=== PATIENT | female | born 1985 | race Caucasian/White ===

== ENCOUNTER 2017-03-31 20:37 | Observation (INO) | payer OTHER ==
[~2017-03-31] VITALS: Ht 160 cm; Wt 68.0 kg
[~2017-03-31 20:37] MED LIST: PERC5TAB12 PO
[2017-03-31 20:39] VITALS: BP 140/88; PULSE 79; RESP 16; TEMP 98.2; O2SAT 99
[2017-03-31] MEDS ORDERED: VENL75TA PO (21:26)
[2017-03-31] MEDS ORDERED: BUPR100T4 PO (21:26)
[2017-03-31] MEDS ORDERED: CLON1TAB PO (21:26)
[2017-03-31] MEDS ORDERED: TRAZ100T6 PO (21:26)
--- NOTE | 2017-03-31 21:26 | PD ---
HPI Chief Complaint: Chest Pain Time Seen by Provider: 21:23 Travel History International Travel<30 days: No Contact w/Intl Traveler<30days: No Traveled to known affect area: No History of Present Illness HPI 31-year-old female with history of hypertension, anxiety attacks, presents to the ER today because of a substernal chest discomfort that started at work today with radiation to the back and down the left arm, shortness of breath, currently measuring at an 8 out of 10. She denies any fevers, coughing, vomiting, nausea, or any other symptoms. She does not know any exacerbating or alleviating factors. Modifying Factors: None Associated Signs & Symptoms: Substernal chest pains Risk Factors: Hypertension, anxiety attack PFSH Past Medical History Anxiety: Yes Immunizations Current: Yes Tetanus Vaccination: < 5 Years ?: Not LMP: irregular : 2 Para: 1 Miscarriage: 1 Past Surgical History Gynecologic Surgery: Yes (IUD PERF UTERUS) Social History Alcohol Use: No Tobacco Use: Yes Substance Use: No Allergies-Medications (Allergen,Severity, Reaction): Coded Allergies: No Known Allergies (Unverified , 03/31/17) Reported Meds & Prescriptions Reported Meds & Active Scripts Active Reported Gabapentin 600 Mg Tab 600 Mg PO BID Effexor (Venlafaxine HCl) 75 Mg Tab 75 Mg PO DAILY Trazodone (Trazodone HCl) 100 Mg Tablet 100 Mg PO HS Clonazepam 1 Mg Tab 1 Mg PO BID Bupropion HCl 100 Mg Tab 100 Mg PO TID Review of Systems Except as stated in HPI: all other systems reviewed are Neg Physical Exam Narrative GENERAL: Well-developed anxious appearing young white female patient currently in mild distress. Awake and oriented 3. SKIN: Focused skin assessment warm/dry. HEAD: Atraumatic. Normocephalic. EYES: Pupils equal and round. No scleral icterus. No injection or drainage. ENT: No nasal bleeding or discharge. Mucous membranes pink and moist. NECK: Trachea midline. No JVD. CARDIOVASCULAR: Regular rate and rhythm. No murmur appreciated. Pulses are present and equal bilaterally. RESPIRATORY: No accessory muscle use. Clear to auscultation. Breath sounds equal bilaterally. GASTROINTESTINAL: Abdomen soft, non-tender, nondistended. Hepatic and splenic margins not palpable. MUSCULOSKELETAL: No obvious deformities. No clubbing. No cyanosis. No edema. NEUROLOGICAL: Awake and alert. No obvious cranial nerve deficits. Motor grossly within normal limits. Normal speech. PSYCHIATRIC: Appropriate mood and affect; insight and judgment normal. Data Data Last Documented VS Vital Signs Date Time Temp Pulse Resp B/P Pulse Ox O2 Delivery O2 Flow Rate FiO2 03/31/17 22:49 99 03/31/17 22:21 69 16 142/88 Room Air 03/31/17 20:39 98.2 Orders Electrocardiogram (03/31/17:23) Ckmb (Isoenzyme) Profile (03/31/17:23) Complete Blood Count With Diff (03/31/17:23) Comprehensive Metabolic Panel (03/31/17:) Magnesium (Mg) (03/31/17:23) Prothrombin Time / Inr (Pt) (03/31/17:) Act Partial Throm Time (Ptt) (03/31/17:) Troponin I (03/31/17:23) Chest, Single Ap (03/31/17:23) Ecg Monitoring (03/31/17:23) Bilateral Bp Monitoring (03/31/17 21:23) Iv Access Insert/Monitor (03/31/17:23) Oximetry (03/31/17:23) Oxygen Administration (03/31/17:23) Sodium Chloride 0.9% Flush (Ns Flush) (03/31/17 21:30) Sodium Chlorid 0.9% 500 Ml Inj (Ns 500 M (03/31/17 21:30) Ed Urine Pregnancytest Poc (03/31/17 21:23) CKMB (03/31/17 21:30) CKMB% (03/31/17 21:30) Aspirin (Aspirin) (03/31/17 22:45) Nitroglycerin 2% Oint (Nitroglycerin 2% (03/31/17 22:45) Activity Bed Rest With Brp (03/31/17 22:47) Vital Signs (Adult) Q4H (03/31/17 22:47) Cardiac Rhythm .As Directed (03/31/17 22:47) Notify Dr: Other .PRN (03/31/17 22:47) Notify Parameters (03/31/17 22:47) Resp Oxygen Nasal Cannula (03/31/17 ) Diet Heart Healthy (04/01/17 Breakfast) Ckmb (Isoenzyme) Profile (03/31/17 22:47) Ckmb (Isoenzyme) Profile (04/01/17 01:47) Troponin I (03/31/17 22:47) Troponin I (04/01/17 01:47) Electrocardiogram (03/31/17 22:47) Electrocardiogram (04/01/17 01:47) ^ Obtain (03/31/17 22:47) 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 Operator / Telemetry [id number] (03/31/17 22:47) Admit Order (Ed Use Only) (03/31/17 22:47) Labs Laboratory Tests Test 03/31/17 21:30 White Blood Count 6.6 TH/MM3 Red Blood Count 4.30 MIL/MM3 Hemoglobin 13.0 GM/DL Hematocrit 38.8 % Mean Corpuscular Volume 90.2 FL Mean Corpuscular Hemoglobin 30.2 PG Mean Corpuscular Hemoglobin 33.5 % Concent Red Cell Distribution Width 13.3 % Platelet Count 250 TH/MM3 Mean Platelet Volume 8.0 FL Neutrophils (%) (Auto) 41.5 % Lymphocytes (%) (Auto) 43.6 % Monocytes (%) (Auto) 9.5 % Eosinophils (%) (Auto) 4.4 % Basophils (%) (Auto) 1.0 % Neutrophils # (Auto) 2.7 TH/MM3 Lymphocytes # (Auto) 2.9 TH/MM3 Monocytes # (Auto) 0.6 TH/MM3 Eosinophils # (Auto) 0.3 TH/MM3 Basophils # (Auto) 0.1 TH/MM3 CBC Comment DIFF FINAL Differential Comment Prothrombin Time 10.3 SEC Prothromb Time International 0.9 RATIO Ratio Activated Partial 29.7 SEC Thromboplast Time Sodium Level 137 MEQ/L Potassium Level 3.7 MEQ/L Chloride Level 104 MEQ/L Carbon Dioxide Level 25.9 MEQ/L Anion Gap 7 MEQ/L Blood Urea Nitrogen 7 MG/DL Creatinine 0.84 MG/DL Estimat Glomerular Filtration 79 ML/MIN Rate Random Glucose 72 MG/DL Calcium Level 8.3 MG/DL Magnesium Level 2.1 MG/DL Total Bilirubin 0.3 MG/DL Aspartate Amino Transf 12 U/L (AST/SGOT) Alanine Aminotransferase 17 U/L (ALT/SGPT) Alkaline Phosphatase 51 U/L Total Creatine Kinase 121 U/L Creatine Kinase MB 1.0 NG/ML Troponin I LESS THAN 0.02 NG/ML Total Protein 7.1 GM/DL Albumin 3.9 GM/DL MDM Medical Decision Making Medical Screen Exam Complete: Yes Emergency Medical Condition: Yes Medical Record Reviewed: Yes Interpretation(s) EKG shows NSR, no ST elevation or depression, and no arrhythmias. No significant T-wave inversions. CHEST X-RAY: No infiltrate, pneumothorax or mediastinal widening. Laboratory Tests Test 03/31/17 21:30 Monocytes (%) (Auto) 9.5 % (0.0-8.0) Eosinophils (%) (Auto) 4.4 % (0.0-4.0) Estimat Glomerular Filtration 79 ML/MIN (>89) Rate Random Glucose 72 MG/DL (74-106) Calcium Level 8.3 MG/DL (8.5-10.1) Aspartate Amino Transf 12 U/L (15-37) (AST/SGOT) Troponin I LESS THAN 0.02 NG/ML (0.02-0.05) Differential Diagnosis Anxiety attack versus ACS versus dysrhythmias Narrative Course Vital signs are stable in the ER. Patient was given aspirin and nitroglycerin in the ER. EKG and chest x-ray as well as cardiac enzymes are unremarkable. At this point, do not seem signs of dysrhythmias. Planning to admit the patient for further evaluation a chest pain. Diagnosis Primary Impression: Chest pain Admitting Information Admitting Physician Requests: Admit Rocky Joseph MD Mar 31, 2017 21:26
[2017-03-31] MEDS ORDERED: GABA600T PO (21:27)
[2017-03-31] MEDS ORDERED: SODIUM CHLORIDE 0.9% FLUSH 10 ML FLUSH IVF PRN (21:30)
[2017-03-31] MEDS ORDERED: SODIUM CHLORID 0.9% 500 ML INJ 500 ML IV ONE (21:30)
[2017-03-31 21:33] VITALS: BP 115/75; PULSE 70; RESP 16; O2SAT 99
[2017-03-31 21:45] LABS: AUTOMATED NEUTROPHIL # 2.7 TH/MM3 (1.8-7.7); BASOPHIL # 0.1 TH/MM3 (0-0.2); EOSINOPHIL # 0.3 TH/MM3 (0-0.4); EOSINOPHIL % 4.4 % (0.0-4.0); HEMATOCRIT 38.8 % (35.0-46.0); HEMO FLAGS DIFF FINAL; LYMPH % 43.6 % (9.0-44.0); LYMPHOCYTE # 2.9 TH/MM3 (1.0-4.8); MEAN CELL VOLUME 90.2 FL (80.0-100.0); MEAN CORPUSCULAR HEMOGLOBIN 30.2 PG (27.0-34.0); MEAN CORPUSCULAR HGB CONC 33.5 % (32.0-36.0); MONO % 9.5 % (0.0-8.0); NEUT % 41.5 % (16.0-70.0); PLATELET COUNT 250 TH/MM3 (150-450); RED CELL DISTRIBUTION WIDTH 13.3 % (11.6-17.2); WHITE BLOOD COUNT 6.6 TH/MM3 (4.0-11.0)
[2017-03-31 21:58] LABS: APTT (PATIENT) 29.7 SEC (24.3-30.1); INTERNATIONAL NORMALIZED RATIO 0.9 RATIO; PROTHROMBIN TIME - PATIENT 10.3 SEC (9.8-11.6)
[2017-03-31 22:03] LABS: ANION GAP 7 MEQ/L (5-15); AST (GOT) 12 U/L (15-37); BICARBONATE 25.9 MEQ/L (21.0-32.0); BLOOD UREA NITROGEN 7 MG/DL (7-18); CHLORIDE 104 MEQ/L (98-107); GLOMERULAR FILTRATION RATE 79 ML/MIN (>89); MAGNESIUM 2.1 MG/DL (1.5-2.5); POTASSIUM 3.7 MEQ/L (3.5-5.1); SODIUM (NA) 137 MEQ/L (136-145)
[2017-03-31 22:04] LABS: ALT (GPT) 17 U/L (10-53)
[2017-03-31 22:07] LABS: ALKALINE PHOSPHATASE 51 U/L (45-117); CREATINE KINASE 121 U/L (26-192); TOTAL BILIRUBIN ADULT 0.3 MG/DL (0.2-1.0)
[2017-03-31 22:21] VITALS: BP 142/88; PULSE 69; RESP 16; O2SAT 99
--- NOTE | 2017-03-31 22:44 | RADRPT ---
EXAM DATE/TIME: 03/31/2017 21:35 [facility] COMPARISON: No previous studies available for comparison. INDICATIONS : Chest pain today. MEDICAL HISTORY : None. SURGICAL HISTORY : None. ENCOUNTER: Initial ACUITY: 1 day PAIN SCORE: 7/10 LOCATION: Bilateral chest FINDINGS: A single view of the chest demonstrates the lungs to be symmetrically aerated without evidence of mas s, infiltrate or effusion. The cardiomediastinal contours are unremarkable. Osseous structures are intact. CONCLUSION: No acute disease. Hai Ziegler MD on March 31, 2017 at 22:42 Board Certified Radiologist. This report was verified electronically.
[2017-03-31] MEDS ORDERED: NITROGLYCERIN 2% OINT 1 GM PACKET TOPICAL ONE (22:45)
[2017-03-31] MEDS ORDERED: ASPIRIN 325 MG TAB PO ONE (22:45)
[2017-03-31 22:49] VITALS: O2SAT 99
[2017-03-31] MEDS ORDERED: LORazepam 2 MG/ML VIAL IV PUSH ONE (23:30)
[2017-04-01 00:30] VITALS: BP 101/67; PULSE 70; RESP 19; TEMP 98; O2SAT 99
[2017-04-01 01:53] LABS: CREATINE KINASE 102 U/L (26-192)
[2017-04-01] MEDS ORDERED: ACETAMINOPHEN/HYDROcodone 325 MG/5 MG TAB PO ONE (02:00)
[2017-04-01 02:07] LABS: CKMB 0.8 NG/ML (0.5-3.6)
[2017-04-01 02:30] VITALS: PULSE 65
[2017-04-01 04:00] VITALS: BP 90/54; PULSE 78; RESP 18; TEMP 97.3; O2SAT 95
[2017-04-01 04:10] LABS: CREATINE KINASE 93 U/L (26-192)
[2017-04-01 08:00] VITALS: TEMP 97.1
[2017-04-01 08:03] VITALS: O2SAT 96
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
[2017-04-01] MEDS ORDERED: GABAPENTIN 300 MG CAP PO SCH (11:30)
[2017-04-01] MEDS ORDERED: VENLAFAXINE HCL XR 75 MG CAP PO SCH (11:30)
[2017-04-01 11:59] LABS: BETA HCG QUANT LESS THAN 1 MIU/ML (0-5)
[2017-04-01] MEDS ORDERED: buPROPion HCL 100 MG TAB PO SCH (13:00)
[2017-04-01] MEDS ORDERED: clonazePAM 1 MG TAB PO PRN (13:30)
--- NOTE | 2017-04-01 13:54 | EKG ---
Date Performed: 04/01/2017 Time Performed: 03:33:28 PTAGE: 31 years EKG: Sinus rhythm NORMAL ECG PREVIOUS TRACING : 04/01/2017 00.44 Since previous tracing, no significant change noted DOCTOR: Sandor Stratton Interpretating Date/Time 04/01/2017 13:54:01
--- NOTE | 2017-04-01 13:55 | EKG ---
Date Performed: 04/01/2017 Time Performed: 00:44:15 PTAGE: 31 years EKG: Sinus rhythm NORMAL ECG NO PREVIOUS TRACING DOCTOR: Sandor Stratton Interpretating Date/Time 04/01/2017 13:54:29
--- NOTE | 2017-04-01 13:55 | EKG ---
Date Performed: 03/31/2017 Time Performed: 21:25:11 PTAGE: 31 years EKG: Sinus rhythm POSSIBLE LEFT ATRIAL ENLARGEMENT POSSIBLE RIGHT VENTRICULAR CONDUCTION DELAY BORDERLINE ECG NO PREVIOUS TRACING DOCTOR: Sandor Stratton Interpretating Date/Time 04/01/2017 13:54:37
[2017-04-01] MEDS ORDERED: IOHEXOL 350 MG/ML 10 ML VIAL (for RAD DIAG) IV ONE (14:00)
--- NOTE | 2017-04-01 14:08 | RADRPT ---
EXAM DATE/TIME: 04/01/2017 13:47 [facility] COMPARISON: No previous studies available for comparison. INDICATIONS : Chest pain, shooting pains to left arm and leg, nausea and shortness of breath. IV CONTRAST: 66 cc Omnipaque 350 (iohexol) IV RADIATION DOSE: 23.27 CTDIvol (mGy) MEDICAL HISTORY : Cardiovascular disease. Hypertension. SURGICAL HISTORY : ovarian cyst ENCOUNTER: Initial ACUITY: 1 day PAIN SCALE: 8/10 LOCATION: Left upper chest TECHNIQUE: Volumetric scanning of the chest was performed using a pulmonary embolism protocol MIP images were reconstructed. Using automated exposure control and adjustment of the mA and/or kV acco rding to patient size, radiation dose was kept as low as reasonably achievable to obtain optimal diag nostic quality images. FINDINGS: PULMONARY ARTERIES:No filling defects are seen in the pulmonary arteries through the segmental level. LUNGS: There is no consolidation or pneumothorax . No concerning pulmonary nodule is visualized. PLEURAE: There is no pleural thickening or pleural effusion. MEDIASTINUM: There is good visualization of the great vessels of the middle mediastinum. No evid ence of mediastinal or hilar adenopathy/mass. MUSCULOSKELETAL: Within normal limits for patient age. MISCELLANEOUS: The visualized upper abdominal organs demonstrate no acute abnormality. CONCLUSION: Negative CT pulmonary angiogram. Elton Reardon MD FACR on April 01, 2017 at 14:04 Board Certified Radiologist. This report was verified electronically.
[2017-04-01] MEDS ORDERED: PERC5TAB12 (14:46)
[2017-04-01 14:53] VITALS: BP 118/71; PULSE 61; RESP 18; TEMP 97.6; O2SAT 97
[2017-04-01] MEDS ORDERED: oxyCODONE/ACETAMINOPHEN 5 MG/325 MG TAB PO PRN (15:30)
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
--- NOTE | 2017-04-01 16:02 | TR ---
Date Performed: 04/01/2017 Time Performed: 15:22:45 DOCTOR: Sandor Stratton DRUG LIST: CLINICAL HISTORY: REASON FOR TEST: REASON FOR ENDING: OBSERVATION: CONCLUSION: Simon protocol completed. Stopped sec to reaching target heart rate and leg fatigue. Maximum UK=696 Target HR Achieved=87.0% Maximum EQ=267/98 Total Exercise Time=6:48. No reprod chest pain. No ectopy. No st t segment changes to sugg ischemia. Good exercise tolerance. Normal bp respons e. Recovery quick and unremarkable. COMMENTS: Patient exercised using the Simon protocol. No electrocardiographic changes were seen to suggest ischemia. Hemodynamic response to exercise was normal. No significant arrhythmia was prese nt.
== END 2017-04-01 18:43 | disposition home or self-care (01) ==
LOC: NEPC 20:37 → NEDA 22:48 → NEPHCDU 04-01 00:26
PROVIDERS: ADMIT Internal Medicine Interventional Cardiology; ATTEND Internal Medicine Interventional Cardiology
DX: R07.89 Other chest pain (principal); R06.02 Shortness of breath; I10 Essential (primary) hypertension; F41.1 Generalized anxiety disorder; F43.9 Reaction to severe stress, unspecified; F17.210 Nicotine dependence, cigarettes, uncomplicated
CPT/HCPCS: 71010; 71275; 80053; 82550; 82552; 83735; 84484; 84702; 84703; 85025; 85379; 85610; 85730; 93005; 93017; 96360; 99285; G0378; J2060; J7040; Q9967

== ENCOUNTER 2017-04-03 19:08 | Emergency (ER) | payer OTHER ==
[~2017-04-03] VITALS: Ht 160 cm; Wt 68.0 kg
[~2017-04-03 19:08] MED LIST changes: +BUPR100T4 PO; +CLON1TAB PO; +GABA600T PO; +PERC5TAB12; -PERC5TAB12 PO; +TRAZ100T6 PO; +VENL75TA PO
[2017-04-03 19:12] VITALS: BP 137/91; PULSE 110; RESP 16; TEMP 98.7; O2SAT 98
[2017-04-03] MEDS ORDERED: TRIA.1%T TOPICAL (20:07)
--- NOTE | 2017-04-03 20:14 | PD ---
HPI Chief Complaint: Skin Problem Time Seen by Provider: 20:09 Travel History International Travel<30 days: No Contact w/Intl Traveler<30days: No Traveled to known affect area: No History of Present Illness HPI 31-year-old white female presents emergency department with complains of tender red lumps in the back of her left calf for the last 2 days. She states that she thinks she may been bitten by something. She states that the area is painful, red, swollen, pruritic. She also needs a work note to stay out for Thursday. She states that she feels that she'll be over return to work full duty at that time. Patient has subjective fever, chills, headache. Positive general malaise. PFSH Past Medical History Bipolar Disorder: Yes Anxiety: Yes Depression: Yes Heart Rhythm Problems: No Cardiac Catheterization: No Cardiovascular Problems: Yes (pt feels heart just stop and she gets dizzy/ syncope) High Cholesterol: No Congestive Heart Failure: No Diabetes: No Heparin Induced Thrombocytopen: No Hypertension: Yes Medical other: Yes (PTSD, DVT) Immunizations Current: Yes Tetanus Vaccination: < 5 Years ?: Not : 2 Para: 1 Miscarriage: 1 Past Surgical History Coronary Artery Bypass Graft: No Gynecologic Surgery: Yes (IUD PERF UTERUS) Family History Family Myocardial Infarction: No Social History Alcohol Use: No Tobacco Use: Yes (1 ppd) Substance Use: No Allergies-Medications (Allergen,Severity, Reaction): Coded Allergies: No Known Allergies (Unverified , 04/03/17) Reported Meds & Prescriptions Reported Meds & Active Scripts Active Triamcinolone Topical (Triamcinolone Acetonide) 0.1% Cream 1 Applic TOPICAL BID Reported Percocet (Oxycodone-Acetaminophen) 5-325 mg Tab 1 .ROUTE PRN Gabapentin 600 Mg Tab 600 Mg PO BID Effexor (Venlafaxine HCl) 75 Mg Tab 75 Mg PO DAILY Trazodone (Trazodone HCl) 100 Mg Tablet 100 Mg PO HS Clonazepam 1 Mg Tab 1 Mg PO BID Bupropion HCl 100 Mg Tab 100 Mg PO TID Review of Systems Except as stated in HPI: all other systems reviewed are Neg Physical Exam Narrative GENERAL: This is a well-nourished, well-developed patient, in no apparent distress. SKIN: Patient has 2-1.5 cm. Erythematous slightly raised tender papular lesions. Warm and dry. HEAD: Atraumatic. Normocephalic. EYES: PERRL, EOMI, no discharge or injection. No scleral icterus. EARS: Clear NOSE: Nasal turbinates appear normal. THROAT: Mucosa pink and moist. Airway patent. NECK: Trachea midline. supple, moves head freely. LUNGS: Clear to auscultation. CV: Regular in rhythm. ABDOMEN: Soft nontender. EXT: No clubbing cyanosis or edema. Data Data Last Documented VS Vital Signs Date Time Temp Pulse Resp B/P Pulse Ox O2 Delivery O2 Flow Rate FiO2 04/03/17 19:12 98.7 110 16 137/91 98 Room Air Orders Prednisone (Deltasone) (04/03/17 20:15) Diphenhydramine (Benadryl) (04/03/17 20:15) MDM Medical Decision Making Medical Screen Exam Complete: Yes Emergency Medical Condition: Yes Medical Record Reviewed: Yes Differential Diagnosis Differential diagnoses: Insect bite local reaction, folliculitis, abscess, contact dermatitis Narrative Course Patient appears to have a insect bite with local reaction. She is given Benadryl 50 g by mouth, prednisone 60 mg by mouth. She has requested a note to stat a work until Thursday. Diagnosis Primary Impression: Insect bite of ankle with local reaction Qualified Code: S90.562A - Insect bite of ankle with local reaction, left, initial encounter Patient Instructions: General Instructions Departure Forms: Tests/Procedures, Work Release Special Instructions: Return to full duty without restrictions Thursday. Additional Instructions: Rest. Elevation. Ice. 50 g of Benadryl every 4 hours as needed for itching and swelling. Triamcinolone cream. Follow-up with a medical doctor next week. Return to the ER for emergencies. Med/Other Pt SpecificInfo: Prescription(s) given Scripts Triamcinolone Topical 0.1% Cream1 Applic TOPICAL BID #30 GM Prov:Bentley York MD 04/03/17 Disposition: 01 DISCHARGE HOME Condition: Stable Hai Raines Apr 03, 2017 20:14
[2017-04-03] MEDS ORDERED: diphenhydrAMINE HCL 50 MG CAP PO ONE (20:15)
[2017-04-03] MEDS ORDERED: predniSONE 20 MG TAB PO ONE (20:15)
== END 2017-04-03 20:46 | disposition home or self-care (01) ==
LOC: NEPD 19:08
DX: S90.562A Insect bite (nonvenomous), left ankle, initial encounter (principal); R53.81 Other malaise; I10 Essential (primary) hypertension; F17.200 Nicotine dependence, unspecified, uncomplicated; Z86.59 Personal history of other mental and behavioral disorders; W57.XXXA Bitten or stung by nonvenomous insect and other nonvenomous arthropods, initial encounter
CPT/HCPCS: 99283; J7512; Q0163

== ENCOUNTER 2017-04-13 16:45 | Emergency (ER) | payer OTHER ==
[~2017-04-13] VITALS: Ht 160 cm; Wt 70.0 kg
[~2017-04-13 16:45] MED LIST changes: +TRIA.1%T TOPICAL
[2017-04-13 16:47] VITALS: BP 125/77; PULSE 62; RESP 14; TEMP 97.8; O2SAT 98
[2017-04-13] MEDS ORDERED: BUPR100T4 PO (17:34)
[2017-04-13] MEDS ORDERED: VENL75TA PO (17:34)
[2017-04-13] MEDS ORDERED: TRAZ100T6 PO (17:34)
[2017-04-13] MEDS ORDERED: GABA600T PO (17:34)
--- NOTE | 2017-04-13 17:39 | PD ---
HPI Chief Complaint: Medication Refill Request Time Seen by Provider: 17:34 Travel History International Travel<30 days: No Contact w/Intl Traveler<30days: No Traveled to known affect area: No History of Present Illness HPI 31-year-old female recently moved here from [place] comes in the emergency department requesting refills of her psychotropic medications. She currently has no local psychiatrist or primary care physician. She is in the process of getting that taken care of. She is requesting refills of Wellbutrin , trazodone, Effexor, and gabapentin, as well as clonazepam. Patient has no other acute complaints or problems. She has no known drug allergies. PFSH Past Medical History Bipolar Disorder: Yes Anxiety: Yes Depression: Yes Heart Rhythm Problems: No Cardiac Catheterization: No Cardiovascular Problems: Yes (pt feels heart just stop and she gets dizzy/ syncope) High Cholesterol: No Congestive Heart Failure: No Diabetes: No Heparin Induced Thrombocytopen: No Hypertension: Yes Immunizations Current: Yes : 2 Para: 1 Miscarriage: 1 Past Surgical History Coronary Artery Bypass Graft: No Gynecologic Surgery: Yes (IUD PERF UTERUS) Social History Alcohol Use: No Tobacco Use: Yes (1 ppd) Substance Use: No Allergies-Medications (Allergen,Severity, Reaction): Coded Allergies: No Known Allergies (Unverified , 04/03/17) Reported Meds & Prescriptions Reported Meds & Active Scripts Active Triamcinolone Topical (Triamcinolone Acetonide) 0.1% Cream 1 Applic TOPICAL BID Reported Percocet (Oxycodone-Acetaminophen) 5-325 mg Tab 1 .ROUTE PRN Gabapentin 600 Mg Tab 600 Mg PO BID Effexor (Venlafaxine HCl) 75 Mg Tab 75 Mg PO DAILY Trazodone (Trazodone HCl) 100 Mg Tablet 100 Mg PO HS Clonazepam 1 Mg Tab 1 Mg PO BID Bupropion HCl 100 Mg Tab 100 Mg PO TID Review of Systems Except as stated in HPI: all other systems reviewed are Neg General / Constitutional: No: Fever Eyes: No: Visual changes HENT: No: Headaches Cardiovascular: No: Chest Pain or Discomfort Respiratory: No: Shortness of Breath Gastrointestinal: No: Abdominal Pain Genitourinary: No: Dysuria Musculoskeletal: No: Pain Skin: No Rash Neurologic: No: Weakness Psychiatric: Positive: Anxiety, Depression, No: Suicidal Ideations, Homicidal Ideation Endocrine: No: Polydipsia Hematologic/Lymphatic: No: Easy Bruising Physical Exam Narrative GENERAL: Patient is in no acute distress. SKIN: Warm and dry. Normal color. Normal turgor HEAD: Atraumatic. Normocephalic. EYES: Pupils equal and round. No scleral icterus. No injection or drainage. ENT: No nasal bleeding or discharge. Mucous membranes pink and moist. Pharynx is normal. NECK: Trachea midline. Supple nontender. CARDIOVASCULAR: Regular rate and rhythm. RESPIRATORY: No accessory muscle use. Clear to auscultation. Breath sounds equal bilaterally. MUSCULOSKELETAL: Extremities without clubbing, cyanosis, or edema. No obvious deformities. NEUROLOGICAL: Awake and alert. No obvious cranial nerve deficits. Motor grossly within normal limits. Five out of 5 muscle strength in the arms and legs. Normal speech. PSYCHIATRIC: Appropriate mood and affect; insight and judgment normal. Data Data Last Documented VS Vital Signs Date Time Temp Pulse Resp B/P Pulse Ox O2 Delivery O2 Flow Rate FiO2 04/13/17 16:47 97.8 62 14 125/77 98 MDM Medical Decision Making Medical Screen Exam Complete: Yes Emergency Medical Condition: Yes Differential Diagnosis Anxiety. Depression. Medication refill. Narrative Course I explained to patient that we do not prescribe benzodiazepines out of the emergency department. Especially for chronic anxiety issues. Patient is given a refill of her gabapentin 600 mg twice a day for one month. Patient is given a refill of her trazodone 100 mg daily at bedtime #30 with no refill. Patient is given Effexor 75 mg daily #30 with no refill. Patient is given Wellbutrin 100 mg 3 times a day for 30 days with no refills. Patient is given information regarding local primary care and psychiatric services. Diagnosis Primary Impression: Encounter for medication refill Additional Impressions: Anxiety Depression Qualified Code: F32.9 - Depression, unspecified depression type Referrals: [facility] (Out patient) [facility] Patient Instructions: Anxiety (ED), Depression (ED), General Instructions Additional Instructions: I explained to patient that we do not prescribe benzodiazepines out of the emergency department. Especially for chronic anxiety issues. Patient is given a refill of her gabapentin 600 mg twice a day for one month. Patient is given a refill of her trazodone 100 mg daily at bedtime #30 with no refill. Patient is given Effexor 75 mg daily #30 with no refill. Patient is given Wellbutrin 100 mg 3 times a day for 30 days with no refills. Patient is given information regarding local primary care and psychiatric services. Scripts Gabapentin 600 Mg [id number] Mg PO BID #60 TAB Ref 0 Prov:Carine Dennison MD 04/13/17 Venlafaxine (Effexor)75 Mg Tab75 Mg PO DAILY #30 TAB Ref 0 Prov:Carine Dennison MD 04/13/17 Trazodone 100 Mg [id number] Mg PO HS #30 TAB Ref 0 Prov:Carine Dennison MD 04/13/17 Bupropion HCl 100 Mg [id number] Mg PO TID 30 Days Ref 0 Prov:Carine Dennison MD 04/13/17 Disposition: 01 DISCHARGE HOME Condition: Stable Jose Garcia Apr 13, 2017 17:39
== END 2017-04-13 18:09 | disposition home or self-care (01) ==
LOC: NEPK 16:45
DX: F41.8 Other specified anxiety disorders (principal); Z76.0 Encounter for issue of repeat prescription; F31.9 Bipolar disorder, unspecified; I10 Essential (primary) hypertension; F17.210 Nicotine dependence, cigarettes, uncomplicated
CPT/HCPCS: 99281

== ENCOUNTER 2017-06-08 18:24 | Emergency (ER) | payer OTHER ==
[2017-06-08 18:25] VITALS: BP 131/90; PULSE 101; RESP 18; TEMP 98.4; O2SAT 98
[2017-06-08] MEDS ORDERED: CLIN1CAP6 PO (19:34)
[2017-06-08] MEDS ORDERED: MAGICADU2 SWISH-SPIT (19:34)
[2017-06-08] MEDS ORDERED: IBUP800T23 PO (19:34)
--- NOTE | 2017-06-08 19:42 | PD ---
HPI Chief Complaint: Facial Pain or Swelling Time Seen by Provider: 19:32 Travel History International Travel<30 days: No Contact w/Intl Traveler<30days: No Traveled to known affect area: No History of Present Illness HPI 31-year-old female presents for evaluation of right-sided jaw/gingival pain. Symptoms started 4 days ago. The pain is an aching pain in the right mandibular gum line region which is constant, worse with chewing. The pain radiates to the right side of her head as well as her right ear. She tried using some leftover penicillin antibiotics that she had however the symptoms have persisted which prompted evaluation. Denies fevers or chills, rash, facial trauma. No other complaints. PFSH Past Medical History Bipolar Disorder: Yes Anxiety: Yes Depression: Yes Heart Rhythm Problems: No Cardiac Catheterization: No Cardiovascular Problems: Yes (pt feels heart just stop and she gets dizzy/ syncope) High Cholesterol: No Congestive Heart Failure: No Diabetes: No Heparin Induced Thrombocytopen: No Hypertension: Yes Immunizations Current: Yes ?: Unknown : 2 Para: 1 Miscarriage: 1 Past Surgical History Coronary Artery Bypass Graft: No Gynecologic Surgery: Yes (IUD PERF UTERUS) Social History Alcohol Use: No Tobacco Use: Yes (1 ppd) Substance Use: No Allergies-Medications (Allergen,Severity, Reaction): Coded Allergies: No Known Allergies (Unverified , 04/03/17) Reported Meds & Prescriptions Reported Meds & Active Scripts Active Ibuprofen 800 Mg Tab 800 Mg PO Q6HR PRN Magic Mouthwash Adult Liq (Multi-Ingredient Mouthwash/Gargle) 120 Ml Susp 10 Ml SWISH-SPIT ACHS Each 5mL contains: Nystatin 200,000units, Diphenhydramine 4.25mg, Viscous Lidocaine 10mg, Biswas syrup 0.8 mL Clindamycin (Clindamycin HCl) 300 Mg Cap 300 Mg PO TID 10 Days Gabapentin 600 Mg Tab 600 Mg PO BID Effexor (Venlafaxine HCl) 75 Mg Tab 75 Mg PO DAILY Trazodone (Trazodone HCl) 100 Mg Tablet 100 Mg PO HS Bupropion HCl 100 Mg Tab 100 Mg PO TID 30 Days Reported Clonazepam 1 Mg Tab 1 Mg PO BID Review of Systems Except as stated in HPI: all other systems reviewed are Neg Physical Exam Narrative GENERAL: Well-developed well-nourished female in no acute distress SKIN: Warm and dry. HEAD: Atraumatic. Normocephalic. EYES: Pupils equal and round. No scleral icterus. No injection or drainage. ENT: No nasal bleeding or discharge. Mucous membranes pink and moist. The right mandibular gum line is tender to palpation. There is no facial edema, no trismus, no sublingual edema, no submandibular edema. Tympanic membranes appear Normal bilaterally without erythema or fluid level. NECK: Trachea midline. No JVD. No lymphadenopathy. Neck supple full range of motion. CARDIOVASCULAR: Regular rate and rhythm. No murmur appreciated. RESPIRATORY: No accessory muscle use. Clear to auscultation. Breath sounds equal bilaterally. Data Data Last Documented VS Vital Signs Date Time Temp Pulse Resp B/P (MAP) Pulse Ox O2 Delivery O2 Flow Rate FiO2 06/08/17 18:25 98.4 101 18 131/90 (104) 98 Orders Orders Clindamycin (Cleocin) (06/08/17 19:45) Ketorolac Inj (Toradol Inj) (06/08/17 19:45) MDM Medical Decision Making Medical Screen Exam Complete: Yes Emergency Medical Condition: Yes Medical Record Reviewed: Yes Differential Diagnosis Dental caries, pulpitis, pericoronitis, periodontal abscess, temporomandibular joint dysfunction, otitis media Narrative Course 31-year-old female with 4 days of right-sided gingival pain. She has been using penicillin which has not helped. The plan will be to discharge the patient with a short course of clindamycin as well as ibuprofen. Recommend outpatient follow-up with a dentist. Diagnosis Primary Impression: Pain of gingiva Additional Instructions: Medication as prescribed. Follow up with a dentist. Return for any emergent medical conditions. Med/Other Pt SpecificInfo: Prescription(s) given Scripts Ibuprofen (Ibuprofen) 800 Mg Tab 800 MG PO Q6HR Y for PAIN, #40 TAB 0 Refills Prov: Gita Solis 06/08/17 Yosuhsds-Lxkjusvlwvbhppc-Wcaeqrjns Liq (Magic Mouthwash Adult Liq) 120 Ml Susp 10 ML SWISH-SPIT ACHS for Mouth sores, #120 ML 1 Refill Each 5mL contains: Nystatin 200,000units, Diphenhydramine 4.25mg, Viscous Lidocaine 10mg, Biswas syrup 0.8 mL Prov: Gita Solis DO 06/08/17 Clindamycin (Clindamycin) 300 Mg Cap 300 MG PO TID for Infection for 10 Days, CAP 0 Refills Prov: Gita Solis DO 06/08/17 Disposition: 01 DISCHARGE HOME Condition: Stable Dominic Hilton Jun 08, 2017 19:42
[2017-06-08] MEDS ORDERED: KETOROLAC TROMETHAMINE 60 MG/2 ML (IM) VIAL IM ONE (19:45)
[2017-06-08] MEDS ORDERED: CLINDAMYCIN 150 MG CAP PO ONE (19:45)
== END 2017-06-08 20:25 | disposition home or self-care (01) ==
LOC: NEPK 18:24
DX: K08.89 Other specified disorders of teeth and supporting structures (principal); F17.200 Nicotine dependence, unspecified, uncomplicated
CPT/HCPCS: 96372; 99284; J1885

== ENCOUNTER 2017-08-24 13:29 | Emergency (ER) | payer OTHER ==
[~2017-08-24 13:29] MED LIST changes: -GABA600T PO; +IBUP1TAB7 PO; +LACT10SO PO; -PERC5TAB12; +SERO50TA PO; +TRAZ100T10 PO; -TRAZ100T6 PO; -TRIA.1%T TOPICAL; -VENL75TA PO
[2017-08-24 13:31] VITALS: BP 148/83; PULSE 94; RESP 18; TEMP 98.4; O2SAT 99
[2017-08-24] MEDS ORDERED: ACETAMINOPHEN/HYDROcodone 325 MG/5 MG TAB PO ONE (14:00)
[2017-08-24] MEDS ORDERED: MAGICPED SWISH-SWAL (14:01)
[2017-08-24] MEDS ORDERED: DICL50TA3 PO (14:01)
--- NOTE | 2017-08-24 14:05 | PD ---
HPI Chief Complaint: Oral / Dental Pain or Problem Time Seen by Provider: 13:49 Travel History International Travel<30 days: No Contact w/Intl Traveler<30days: No Traveled to known affect area: No History of Present Illness HPI 32-year-old female presents to the emergency department for tooth pain for approximately 1 week. States that she has a dentist appointment Thursday however , her dentist told her to come to the emergency department for treatment. States that she has 3 fractures of her teeth including her upper incisors and a left lower premolar. Says the pain is concentrated in the left lower jaw. States the pain does not radiate but is moderate and achy in nature. Patient denies fever, chills, chest pain, shortness of breath. Denies throat pain, exudate from gingiva, or decreased range of motion of jaw. PFSH Past Medical History Bipolar Disorder: Yes Anxiety: Yes Depression: Yes Heart Rhythm Problems: No Cardiac Catheterization: No Cardiovascular Problems: Yes (HTN) High Cholesterol: No Congestive Heart Failure: No Diabetes: No Heparin Induced Thrombocytopen: No Hypertension: Yes Immunizations Current: Yes : 2 Para: 1 Miscarriage: 1 Past Surgical History Coronary Artery Bypass Graft: No Gynecologic Surgery: Yes (IUD PERF UTERUS) Social History Alcohol Use: Yes (rarely) Tobacco Use: Yes (1/2 ppd) Substance Use: No Allergies-Medications (Allergen,Severity, Reaction): Coded Allergies: No Known Allergies (Unverified , 08/09/17) Reported Meds & Prescriptions Reported Meds & Active Scripts Active Clindamycin (Clindamycin HCl) 300 Mg Cap 300 Mg PO TID 5 Days Magic Mouthwash Pediatric/Adult Liq (Lidocaine/Diphenhydr/Alum/Mg/Simeth) 60 Ml Susp 5 Ml SWISH-SWAL ACHS Each 5mL contains: Diphenydramine 4.5mg, Viscous Lidocaine 2% 10mg, Maalox Advanced Regular Strength 2.7ml Diclofenac Sodium DR (Diclofenac Sodium) 50 Mg Tabdr 50 Mg PO TID 5 Days Lactulose Liq (Lactulose) 10 Gm/15 Ml Soln 30 Ml PO DAILY PRN 5 Days Ibuprofen 800 Mg Tab 800 Mg PO Q6HR PRN Trazodone (Trazodone HCl) 100 Mg Tablet 100 Mg PO HS Bupropion HCl 100 Mg Tab 100 Mg PO TID 30 Days Reported Seroquel (Quetiapine Fumarate) 50 Mg Tab 50 Mg PO DAILY Clonazepam 1 Mg Tab 0.5 Mg PO TID Review of Systems Except as stated in HPI: all other systems reviewed are Neg Physical Exam Narrative GENERAL: Well-nourished, well-developed patient in mild distress SKIN: Focused skin assessment warm/dry. HEAD: Normocephalic. EYES: No scleral icterus. No injection or drainage. MOUTH: Mucous membranes moist, no lesions, tongue. Poor dentition, gingiva without fluctuance or exudate. TTP over left jaw area without edema. NECK: Supple, trachea midline. No JVD or lymphadenopathy. TTP to left anterior cervical lymph nodes. CARDIOVASCULAR: Regular rate and rhythm without murmurs, gallops, or rubs. RESPIRATORY: Breath sounds equal bilaterally. No accessory muscle use. GASTROINTESTINAL: Abdomen soft, non-tender, nondistended. MUSCULOSKELETAL: No cyanosis, or edema. BACK: Nontender without obvious deformity. No CVA tenderness. Data Data Last Documented VS Vital Signs Date Time Temp Pulse Resp B/P (MAP) Pulse Ox O2 Delivery O2 Flow Rate FiO2 08/24/17 14:45 08/24/17 13:31 98.4 94 18 99 Orders Orders Acetamin-Hydrocod 325-5 Mg ([place] 5-325 (08/24/17 14:00) Ed Discharge Order (08/24/17 14:31) MDM Medical Decision Making Medical Screen Exam Complete: Yes Emergency Medical Condition: Yes Differential Diagnosis Tooth fracture versus pulpitis versus dental infection versus gingivitis Narrative Course 32-year-old female presents to the emergency department for tooth pain for approximately 1 week. States that she has a dentist appointment Thursday however , her dentist told her to come to the emergency department for treatment. States that she has 3 fractures of her teeth including her upper incisors and a left lower premolar. Says the pain is concentrated in the left lower jaw. States the pain does not radiate but is moderate and achy in nature. She has used motrin and BC Powder without relief. Patient denies fever, chills, chest pain, shortness of breath. Denies throat pain, exudate from gingiva, or decreased range of motion of jaw. Physical exam- poor dentition, difficulty determining fractured teeth vs significant caries. Mild hypopigmentation of lingual aspect of gingiva. No fluctuance or exudate. Vital signs stable Reviewed EFORSCE- demonstrated a hydrocodone prescription from August 16 for 12 hydrocodone 5-325. Pt did not disclose this information to me initially. There is a concern for infection of the teeth secondary to fractures. Clindamycin, diclofenac, and magic mouthwash for treatment. Advised she follow up with dentist as scheduled. Return to ED for worsening symptoms. Diagnosis Primary Impression: Dental infection Referrals: Dentist Additional Instructions: Take medications as prescribed Follow-up with dentist as scheduled If her symptoms persist or worsen return to the emergency department Scripts Clindamycin (Clindamycin) 300 Mg Cap 300 MG PO TID for Infection for 5 Days, CAP 0 Refills Prov: Raheem Red MD 08/24/17 Zkcxlrhghzfhzbd-Xijxdefqq-Ijz-Alum-Simeth Liq (Magic Mouthwash Pediatric/Adult Liq) 60 Ml Susp 5 ML SWISH-SWAL ACHS for Mouth sores, #60 ML 0 Refills Each 5mL contains: Diphenydramine 4.5mg, Viscous Lidocaine 2% 10mg, Maalox Advanced Regular Strength 2.7ml Prov: Raheem Red MD 08/24/[address] (Diclofenac Sodium DR) 50 Mg Tabdr 50 MG PO TID for Pain Management for 5 Days, #20 TAB 0 Refills Prov: Raheem Red MD 08/24/17 Disposition: 01 DISCHARGE HOME Condition: Stable Izabela Navas Aug 24, 2017 14:05
[2017-08-24] MEDS ORDERED: CLIN300C5 PO (14:06)
== END 2017-08-24 14:46 | disposition home or self-care (01) ==
LOC: NEPK 13:29
DX: K04.7 Periapical abscess without sinus (principal); I10 Essential (primary) hypertension; F17.210 Nicotine dependence, cigarettes, uncomplicated
CPT/HCPCS: 99284